=== PATIENT | male | born 2000 | race Caucasian/White ===

== ENCOUNTER 2021-09-26 21:35 | Emergency (ER) | payer MEDICAID, OTHER ==
[~2021-09-26] VITALS: Ht 182.9 cm; Wt 120.2 kg
[2021-09-26 21:35] VITALS: BP 134/80
[2021-09-27] MEDS ORDERED: IBUP800T27 PO (15:02)
== END 2021-09-27 00:55 | disposition left against medical advice (07) ==
LOC: ER 21:38
DX: M79.652 Pain in left thigh (principal); V28.4XXA Motorcycle driver injured in noncollision transport accident in traffic accident, initial encounter; Y93.89 Activity, other specified; Y92.89 Other specified places as the place of occurrence of the external cause; Y99.8 Other external cause status

== ENCOUNTER 2021-09-27 11:52 | Emergency (ER) | payer MEDICAID, OTHER ==
[~2021-09-27] VITALS: Ht 182.9 cm; Wt 120.2 kg
[2021-09-27 11:53] VITALS: BP 150/89
[2021-09-27] MEDS ORDERED: IBUP800T27 PO (15:02)
== END 2021-09-27 15:09 | disposition home or self-care (01) ==
LOC: ER 11:52
DX: S70.12XA Contusion of left thigh, initial encounter (principal); R60.0 Localized edema; V29.9XXA Motorcycle rider (driver) (passenger) injured in unspecified traffic accident, initial encounter; Y93.89 Activity, other specified; Y92.89 Other specified places as the place of occurrence of the external cause; Y99.8 Other external cause status
CPT/HCPCS: 93971